=== PATIENT | male | born 1990 | race African-American/Black ===

== ENCOUNTER 2022-01-15 07:12 | Outpatient (CLI) | payer MEDICAID, SELFPAY ==
--- NOTE | ~2022-01-15 | XR_ITS ---
EXAMINATION: XR chest 2V 01/15/2022 08:10 INDICATION: Upper respiratory symptoms. PROCEDURE: 2 view chest COMPARISON: No prior studies for comparison. FINDINGS: The lungs are clear. The cardiomediastinal silhouette is within normal limits. There are no pleural effusions. There is no pneumothorax suspected. IMPRESSION: 1: NO ACUTE CARDIOPULMONARY DISEASE. Reviewed, dictated and finalized at location A.
[2022-01-15 07:58] LABS: Add Urine Microscopic? YES; Appearance Urine Clear (Clear); Bilirubin Urine Negative (Negative); Blood Urine Negative (Negative); Color Urine Yellow (Yellow); Glucose Urine UA Negative (Negative); Ketones Urine Negative (Negative); Leukocyte Esterase Ur Negative LEU/UL (NEGATIVE); Nitrate Urine Negative (Negative); Protein Urine Negative (Negative); Specific Grav Ur >= 1.030 (1.001-1.035)
[2022-01-15 08:00] LABS: Hemoglobin 13.6 g/dL (14.0-18.0); Mean Corpuscular HGB Conc 33.2 g/dl (32-36); Mean Corpuscular Hemoglobin 29.8 pg (26-34); Mean Corpuscular Volume 89.9 fl (80-100); Mean Platelet Volume 10.9 fl (7.4-10.4); Platelet Count Result 205 k/mm3 (150-375); Red Blood Count 4.56 M/mm3 (4.6-6.20); Red Cell Distribution Width 11.5 % (11.5-14.5); White Blood Count 5.4 K/mm3 (4.5-10.0)
[2022-01-15 08:04] LABS: Bacteria Urine Trace /hpf; Squamous Epithelial Cell Urine Rare /hpf (Few); WBC Urine 0-3 /hpf (0-3)
[2022-01-15 08:14] LABS: Creatinine Urine 170.6 mg/dL
[2022-01-15 08:22] LABS: Microalbumin Urine Random < 6.0 mg/L (0-16.7)
[2022-01-15 08:23] LABS: MALB Creatinine Ratio < 3.5 mg/g (0-30)
[2022-01-15 08:24] LABS: Alanine Aminotransferase 23 U/L (6-50); Albumin Level 4.6 g/dL (3.5-5.1); Alkaline Phosphatase 53 U/L (38-126); Anion Gap 9 mmol/L (8-16); Aspartate Amino Transferase 29 U/L (17-59); Bilirubin,Total 0.6 mg/dL (0.2-1.3); Blood Urea Nitrogen 12 mg/dL (9-20); Calcium 9.2 mg/dL (8.4-10.2); Carbon Dioxide 24 mmol/L (22-30); Chloride 105 mmol/L (98-107); Cholesterol 172 mg/dL (0-200); Estimated Glomerular Filt Rate > 60; Glucose 112 mg/dL (65-110); HDL Direct 64 mg/dL; Potassium 4.1 mmol/L (3.4-5.0); Sodium 138 mmol/L (137-145); Triglycerides 67 mg/dL (<150)
[2022-01-15 08:39] LABS: LDL Cholesterol Direct 68 mg/dL
[2022-01-15 08:47] LABS: Free T4 Free Thyroxine 1.21 ng/mL (0.78-2.19)
[2022-01-15 08:54] LABS: Thyroid Stimulating Hormone 0.902 uIU/mL (0.465-4.680)
[2022-01-15 09:56] LABS: Hemoglobin A1C 4.4 % (<5.7)
== END 2022-01-15 07:13 | disposition home or self-care (01) ==
PROVIDERS: PCP Emergency Medicine; Visit Provider Emergency Medicine
DX: R12 Heartburn (principal); I10 Essential (primary) hypertension; F31.9 Bipolar disorder, unspecified; J06.9 Acute upper respiratory infection, unspecified
CPT/HCPCS: 36415; 71046; 80053; 80061; 81001; 82043; 83036; 84439; 84443; 85027

== ENCOUNTER 2022-02-07 06:52 | Outpatient (CLI) | payer OTHER, SELFPAY ==
[2022-02-07 08:00] LABS: Appearance Urine Clear (Clear); Bilirubin Urine Negative (Negative); Blood Urine Negative (Negative); Color Urine Yellow (Yellow); Glucose Urine UA Negative (Negative); Ketones Urine Negative (Negative); Leukocyte Esterase Ur Negative LEU/UL (NEGATIVE); Nitrate Urine Negative (Negative); Protein Urine Negative (Negative); Urobilinogen Urine 0.2 mg/dL (<2.0)
[2022-02-07 08:06] LABS: WBC Urine 0-3 /hpf (0-3)
[2022-02-07 08:15] LABS: Add Urine Microscopic? NO
[2022-02-07 08:21] LABS: Iron 152 ug/dL (49-181)
[2022-02-07 08:51] LABS: HIV 1/2 Ab P24 Ag Result Negative (Negative)
[2022-02-08 08:35] LABS: Rapid Plasma Reagin Non-Reactive (NonReactive)
== END 2022-02-07 06:53 | disposition home or self-care (01) ==
LOC: ANHLAB 06:54
PROVIDERS: PCP Emergency Medicine; Visit Provider Emergency Medicine
DX: R12 Heartburn (principal); R31.9 Hematuria, unspecified
CPT/HCPCS: 36415; 81003; 83540; 86592; 86703; 87491; 87591; G0432

== ENCOUNTER 2022-03-21 11:45 | Emergency (ER) | payer OTHER, SELFPAY ==
--- NOTE | ~2022-03-21 | CT_ITS ---
EXAMINATION: CT abdomen pelvis w con INDICATION: Vomiting and diarrhea, abdominal pain TECHNIQUE: Computed tomographic images of the abdomen and pelvis were obtained after the administrati on of 100 cc of Omnipaque 350 intravenous contrast. The dose-length product (DLP) was 312.06 mGy-cm. Automated exposure control and iterative reconstruction technique were employed. COMPARISON: None available FINDINGS: The lung bases are clear. The heart size is normal. The liver, spleen, pancreas, gallbladde r, and adrenal glands are normal. The kidneys are unremarkable. The appendix is normal. No pathologic ally enlarged abdominal or pelvic lymph nodes are identified. There is no free intraperitoneal gas or evidence of bowel obstruction. There is a small volume of free fluid in the pelvis. IMPRESSION: 1. No CT correlate for the patient's symptoms. Small volume of free fluid in the pelvis of unclear et iology. Reviewed, dictated and finalized at location A. IMPRESSION: 1. No CT correlate for the patient's symptoms. Small volume of free fluid in th e pelvis of unclear etiology.
[2022-03-21 12:28] VITALS: BP 120/73; PULSE 60; RESP 18; TEMP 37; O2SAT 100
[2022-03-21 12:47] LABS: Basophils Absolute Auto 0.1 K/mm3 (0.0-0.1); Basophils Percent Auto 0.8 % (0.2-1.2); Eosinophils Absolute Auto 0.1 K/mm3 (0-0.3); Eosinophils Percent Auto 0.9 % (0-4.4); Hemoglobin 12.9 g/dL (14.0-18.0); Immature Granulocyte Absolute 0.01 K/mm3 (0.00-0.031); Immature Granulocyte Percent A 0.2 % (0-0.5); Lymphocytes Absolute Auto 1.74 K/mm3 (0.9-3.2); Lymphocytes Percent Auto 27.4 % (18.3-44.2); Mean Corpuscular HGB Conc 31.5 g/dl (32-36); Mean Corpuscular Hemoglobin 28.6 pg (26-34); Mean Corpuscular Volume 90.9 fl (80-100); Mean Platelet Volume 10.7 fl (7.4-10.4); Monocytes Absolute Auto 0.4 K/mm3 (0.1-0.6); Monocytes Percent Auto 6.9 % (2.6-8.5); Neutrophils Percent Auto 63.8 % (45.5-73.1); Platelet Count Result 212 k/mm3 (150-375); Red Blood Count 4.51 M/mm3 (4.6-6.20); Red Cell Distribution Width 11.7 % (11.5-14.5); White Blood Count 6.3 K/mm3 (4.5-10.0)
[2022-03-21 12:54] LABS: Alanine Aminotransferase 16 U/L (6-50); Albumin Level 4.5 g/dL (3.5-5.1); Alkaline Phosphatase 57 U/L (38-126); Anion Gap 11 mmol/L (8-16); Aspartate Amino Transferase 24 U/L (17-59); Blood Urea Nitrogen 9 mg/dL (9-20); Calcium 9.3 mg/dL (8.4-10.2); Carbon Dioxide 25 mmol/L (22-30); Chloride 101 mmol/L (98-107); Estimated CRCL calculation 96 ml/min; Estimated Glomerular Filt Rate > 60; Glucose 87 mg/dL (65-110); Lipase 106 U/L (23-300); Potassium 3.7 mmol/L (3.4-5.0); Sodium 137 mmol/L (137-145)
[2022-03-21 13:05] LABS: Appearance Urine Clear (Clear); Bilirubin Urine 1+ (Negative); Blood Urine Negative (Negative); Color Urine Yellow (Yellow); Glucose Urine UA Negative (Negative); Ketones Urine Negative (Negative); Leukocyte Esterase Ur Negative LEU/UL (Negative); Nitrate Urine Negative (Negative); Protein Urine Negative (Negative); Specific Grav Ur 1.025 (1.001-1.035); pH Urine 5.5 (5.0-9.0)
[2022-03-21 13:19] LABS: Mucus Urine Rare /lpf; Squamous Epithelial Cell Urine Rare /hpf (Few); WBC Urine 0-3 /hpf
[2022-03-21 13:42] LABS: Add Urine Microscopic? YES
[2022-03-21 14:39] VITALS: BP 123/82; PULSE 63; RESP 16; TEMP 36.7; O2SAT 99
--- NOTE | 2022-03-21 14:47 | ED.GENADULT ---
HPI - General Adult General Chief complaint: Nausea/Vomiting/Diarrhea Stated complaint: n/v/d Time Seen by Provider: 03/21/22 14:30 History of Present Illness HPI narrative: 31-year-old male presented to the emergency department for evaluation of nausea vomiting diarrhea and associated upper abdominal pain. Patient states yesterday he began developing the nausea vomiting diarrhea and abdominal pain and that has persisted throughout the night. Patient describes upper abdominal pain. Patient denies any prior surgical history. Related Data Allergies Allergy/AdvReac Type Severity Reaction Status Date / Time No Known Allergies Allergy Verified 03/21/22 14:38 Review of Systems Review of Systems: CONSTITUTIONAL: Denies fever, chills, or sweats. EYES: Denies visual changes, redness, or discharge. ENT: Denies rhinorrhea, congestion, sore throat, or otalgia. CARDIOVASCULAR: Denies chest pain, palpitations, or edema. RESPIRATORY: Denies cough or dyspnea. GASTROINTESTINAL: See HPI GENITOURINARY: Denies dysuria or hematuria. SKIN: Denies rash or itching. MUSCULOSKELETAL: Denies back pain, joint pain, or myalgia. NEUROLOGIC: Denies headache, numbness, or weakness. Exam Narrative: APPEARANCE: Well appearing, no pain, no distress, well-nourished. HEAD: normocephalic, atraumatic. EYES: PERRLA/EOMI, conjunctivae clear. NOSE: Normal no drainage NECK: Supple. No adenopathy, no masses. RESPIRATORY: Airway patent, respirations nonlabored. Clear to auscultation bilaterally, no rales, rhonchi, wheezing. CARDIOVASCULAR: Regular rate and rhythm without murmurs rubs or gallops. ABDOMINAL: Soft, upper abdominal tenderness to palpation MUSCULOSKELETAL: Moves all extremities. Strength/ROM intact, No edema, No calf tenderness. NEURO: Alert. Cranial nerves II through XII intact. Grossly intact SKIN: Warm, dry. Normal Color Course Vital Signs Vital signs: Vital Signs Temperature 98.6 F 03/21/22 12:28 Pulse Rate 60 03/21/22 12:28 Respiratory Rate 18 03/21/22 12:28 Blood Pressure 120/73 03/21/22 12:28 Pulse Oximetry 100 03/21/22 12:28 Oxygen Delivery Room Air 03/21/22 12:28 Temperature 98.0 F 03/21/22 16:05 Pulse Rate 60 03/21/22 16:05 Respiratory Rate 18 03/21/22 16:05 Blood Pressure 124/82 03/21/22 16:05 Pulse Oximetry 100 03/21/22 16:05 Oxygen Delivery Room Air 03/21/22 14:39 Medical Decision Making Vital Signs Vital Signs: Vital Signs Temperature 98.6 F 03/21/22 12:28 Pulse Rate 60 03/21/22 12:28 Respiratory Rate 18 03/21/22 12:28 Blood Pressure 120/73 03/21/22 12:28 Pulse Oximetry 100 03/21/22 12:28 Oxygen Delivery Room Air 03/21/22 12:28 Temperature 98.0 F 03/21/22 16:05 Pulse Rate 60 03/21/22 16:05 Respiratory Rate 18 03/21/22 16:05 Blood Pressure 124/82 03/21/22 16:05 Pulse Oximetry 100 03/21/22 16:05 Oxygen Delivery Room Air 03/21/22 14:39 Lab Data Lab results reviewed: Yes I reviewed the patient's lab results. Result diagrams: 03/21/22 12:37 03/21/22 12:37 Labs: Lab Results 03/21/22 03/21/22 03/21/22 Range/Units 12:37 12:37 12:41 WBC 6.3 (4.5-10.0) K/mm3 RBC 4.51 L (4.6-6.20) M/mm3 Hgb 12.9 L (14.0-18.0) g/dL Hct 41.0 L (42.0-52.0) % MCV 90.9 (80-100) fl MCH 28.6 (26-34) pg MCHC 31.5 L (32-36) g/dl RDW 11.7 (11.5-14.5) % Plt Count 212 (150-375) k/mm3 MPV 10.7 H (7.4-10.4) fl Immature Gran % (Auto) 0.2 (0-0.5) % Neut % (Auto) 63.8 (45.5-73.1) % Lymph % (Auto) 27.4 (18.3-44.2) % [place] % (Auto) 6.9 (2.6-8.5) % Eos % (Auto) 0.9 (0-4.4) % Baso % (Auto) 0.8 (0.2-1.2) % Lymph # (Auto) 1.74 (0.9-3.2) K/mm3 [place] # (Auto) 0.4 (0.1-0.6) K/mm3 Eos # (Auto) 0.1 (0-0.3) K/mm3 Baso # (Auto) 0.1 (0.0-0.1) K/mm3 Abs Immat Gran (auto) 0.01 (0.00-0.031) K/mm3 Absolute Neuts (auto) 4.0 (1.3-6.7) K/mm3
[2022-03-21] MEDS: SODIUM CHLORIDE 0.9% IV 1,000 ML 999 ML IV CONT ×2 (15:04)
[2022-03-21] MEDS: BELLADONNA ALK/PHENOB ELIX 10 ML, MAG HYDROX/ALUMINUM HYD/SIMETH 30 ML, LIDOCAINE HCL 2... PO (15:05)
[2022-03-21] MEDS: ONDANSETRON INJ 4 MG/2 ML VIAL IV PUSH (15:05)
[2022-03-21 16:05] VITALS: BP 124/82; PULSE 60; RESP 18; TEMP 36.7; O2SAT 100
== END 2022-03-21 16:43 | disposition home or self-care (01) ==
PROVIDERS: Emergency Provider Emergency Medicine; PCP Emergency Medicine
DX: R11.2 Nausea with vomiting, unspecified (principal)
CPT/HCPCS: 36415; 74177; 80053; 81001; 83690; 85025; 96361; 96374; 99284; A9270; J2405; J7030; Q9967

== ENCOUNTER 2022-04-20 17:14 | Emergency (ER) | payer OTHER, SELFPAY ==
--- NOTE | 2022-04-20 17:15 | ED.URI ---
HPI - URI/Sore Throat General Chief Complaint: Upper Respiratory Infection Stated Complaint: Pt states he wants a Rapid Covid Test Time Seen by Provider: 04/20/22 17:14 Source: patient Mode of arrival: ambulatory Limitations: no limitations History of Present Illness HPI Narrative: Mr. Pimentel is a 31-year-old male patient presenting to the clinic today with complaints of body aches that started this morning and he is wanting a rapid COVID test. He reports his work come back to work until he gets tested. He denies any known exposure to anybody with COVID, influenza, or strep Related Data Home Medications Medication Instructions Recorded Confirmed amlodipine 5 mg tablet 5 mg PO DAILY 04/20/22 04/20/22 divalproex 500 mg tablet,delayed 500 mg PO DIRECTED 04/20/22 04/20/22 release Allergies Allergy/AdvReac Type Severity Reaction Status Date / Time No Known Allergies Allergy Verified 04/20/22 17:17 Review of Systems Review of Systems: Pertinent positives per HPI. Patient denies any fever, chills, rash, headache, visual changes, dizziness, cough, runny nose, sore throat, shortness of breath, chest pain, palpitations, nausea, vomiting, diarrhea, constipation, abdominal pain, or any urinary issues. PMFSH Comments At the time of my signature, I reviewed and agree with the nursing past medical, surgical, social, and family history. There is no relevant family history pertinent to the patient complaint. Exam Narrative: General: Well-developed, well nourished, in no apparent distress Head: Normocephalic, atraumatic Eyes: Pupils equally round and reactive to light bilaterally, EOM intact, sclera and conjunctive clear, no discharge, lids normal Ears: TMs intact and clear, ear canals clear, no drainage, grossly hearing normal. Nose: Nares patent, no discharge, no inflammation, no sinus tenderness. Mouth: Oropharynx without lesions or masses, good dentition, MMM. Neck: Supple, trachea midline, no enlargement of anterior or posterior cervical nodes, no thyroid masses or goiter palpable. Cardio: Regular rate and rhythm, s1 and s2 normal, no murmur appreciated. Resp: Clear to auscultation bilaterally anteriorly and posteriorly, no rhonchi, rales, wheezing or rubs Course Course Emergency Course: Portions of this record may have been created with voice recognition software. Level of Care: Express Care Visit Vital Signs Vital signs: Vital Signs Temperature 36.8 C 04/20/22 17:23 Pulse Rate 91 04/20/22 17:23 Respiratory Rate 18 04/20/22 17:23 Blood Pressure 129/74 04/20/22 17:23 Pulse Oximetry 99 04/20/22 17:23 Oxygen Delivery Room Air 04/20/22 17:23 Temperature 36.8 C 04/20/22 17:23 Pulse Rate 91 04/20/22 17:23 Respiratory Rate 18 04/20/22 17:23 Blood Pressure 129/74 04/20/22 17:23 Pulse Oximetry 99 04/20/22 17:23 Oxygen Delivery Room Air 04/20/22 17:23 Vital signs reviewed MDM - URI/Sore Throat MDM Narrative Medical decision making narrative: At the time of visit patient is resting comfortably in the exam table. Patient's only had symptoms since this morning so I will go ahead and do a PCR test on him and send it out. Supportive measures were discussed with the patient he voiced understanding of discharge instructions and agrees to treatment plan. Differential Diagnosis Differential diagnosis: Likely upper respiratory infection, otitis media, sinusitis, viral infection, bronchitis, influenza, pharyngitis and other (COVID) Discharge Plan Discharge Clinical Impression: Acute viral syndrome Patient Disposition: Home, Self-Care Condition: Stable Instructions: Antibiotic Form, Viral Syndrome (ED) Additional Instructions: PCR COVID testing obtained and sent to lab Increase fluids and stay well hydrated Tylenol/motrin for pain/fever Flonase and OTC antihistamines as directed Vicks vapor rub to open sinuses Sinus rinses for congestion Cep
[2022-04-20 17:23] VITALS: BP 129/74; PULSE 91; RESP 18; TEMP 36.8; O2SAT 99
[2022-04-20 19:14] LABS: SARS-CoV-2 RNA PCR Negative
== END 2022-04-20 17:30 | disposition home or self-care (01) ==
PROVIDERS: Emergency Provider Nurse Practitioner Family; PCP Emergency Medicine
DX: B34.9 Viral infection, unspecified (principal); Z20.822 Contact with and (suspected) exposure to COVID-19
CPT/HCPCS: 99213; C9803; G0463; U0003; U0005

== ENCOUNTER 2023-04-15 08:59 | Emergency (ER) | payer OTHER, SELFPAY ==
[2023-04-15 09:07] VITALS: BP 114/75; PULSE 75; RESP 16; TEMP 36.2; O2SAT 99
[2023-04-15 09:08] VITALS: BP 114/75; PULSE 75; RESP 16; TEMP 36.2; O2SAT 99
--- NOTE | 2023-04-15 09:19 | ED.GENADULT ---
HPI - General Adult General Chief complaint: Upper Respiratory Infection Stated complaint: Vomiting/Sinus Source: patient Mode of arrival: ambulatory Limitations: no limitations History of Present Illness HPI narrative: Patient presents for evaluation of sick symptoms for the last 2 days. Reports of productive cough of green sputum, nausea and vomiting. He denies any fever, chills, sore throat, shortness of breath. No recent sick contacts to his knowledge. He did call off of work and is requesting a note to excuse him. He smokes about 1/4 ppd. He is not taking any medication to assist with his symptoms. No additional complaints or concerns. Related Data Home Medications Medication Instructions Recorded Confirmed Adderall 04/15/23 Allergies Allergy/AdvReac Type Severity Reaction Status Date / Time No Known Allergies Allergy Verified 04/15/23 09:07 Review of Systems Review of Systems: CONSTITUTIONAL: Denies fever, chills, or sweats. EYES: Denies visual changes, redness, or discharge. ENT: Denies rhinorrhea, congestion, sore throat, or otalgia. CARDIOVASCULAR: Denies chest pain, palpitations, or edema. RESPIRATORY: Reports productive cough of green sputum. Denies dyspnea. GASTROINTESTINAL: Reports nausea and vomiting. Denies abdominal pain GENITOURINARY: Denies dysuria or hematuria. SKIN: Denies rash or itching. MUSCULOSKELETAL: Denies back pain, joint pain, or myalgia. NEUROLOGIC: Denies headache, numbness, dizziness, or weakness. PSYCHIATRIC: Denies anxiety or depression. [facility] Past Medical History Medical History (Updated 04/15/23 @ 09:40 by Aurelio Mckoy, [place], ) No pertinent past medical history Surgical History Surgical History No pertinent past surgical history Family History Family History Mother Family history non-contributory Social History Social History Smoking packs per day: 0.25 Smoking cigarettes per day: 5.0 Smoking status: Current every day smoker Substance use: current Substance use type: marijuana Living arrangements: with family Gender identity (if verbalized by the patient): Male Spiritual care concerns: No Exam Narrative: GENERAL: Well-appearing, well-nourished, and in no acute distress. HEAD: Normocephalic, atraumatic. EYES: PERRLA and EOMI. ENT: Nares clear, no rhinorrhea or epistaxis. Mucous membranes moist. Oropharynx without tonsillar hypertrophy exudate or other lesions. Bilateral TMs [place] nonbulging NECK: Supple. No adenopathy or masses. No carotid bruits or JVD CHEST: Clear to auscultation. No respiratory distress. No wheezes rales or rhonchi HEART: Regular rate and rhythm. No murmur heard. Normal peripheral pulses. ABDOMEN: Soft, nontender, nondistended, normal active bowel sounds. EXTREMITIES: Normal range of motion. No edema. SKIN: Warm, dry, no rash. NEURO: No focal deficits. Alert and oriented x3. PSYCH: Normal mood and affect. Course Course Emergency Course: this is a 32-year-old male who presented for evaluation of sick symptoms. Influenza and COVID were negative. Exam is consistent with acute viral syndrome. Will discharge with Mucinex DM and Zofran. Follow up with primary provider. Go to the emergency department for worsening symptoms. Patient in agreement with plan of care. Level of Care: Express Care Visit Vital Signs Vital signs: Vital Signs Temperature 36.2 C L 04/15/23 09:07 Pulse Rate 75 04/15/23 09:07 Respiratory Rate 16 04/15/23 09:07 Blood Pressure 114/75 04/15/23 09:07 Pulse Oximetry 99 04/15/23 09:07 Oxygen Delivery Room Air 04/15/23 09:07 Temperature 36.2 C L 04/15/23 09:08 Pulse Rate 75 04/15/23 09:08 Respiratory Rate 16 04/15/23 09:08 Blood Pressure 114/75 04/15/23
== END 2023-04-15 09:44 | disposition home or self-care (01) ==
PROVIDERS: Emergency Provider Nurse Practitioner; PCP Emergency Medicine
DX: B34.9 Viral infection, unspecified (principal); F17.210 Nicotine dependence, cigarettes, uncomplicated; Z20.822 Contact with and (suspected) exposure to COVID-19
CPT/HCPCS: 87426; 87804; 99213; C9803; G0463

== ENCOUNTER 2024-02-22 12:24 | Emergency (ER) | payer OTHER, SELFPAY ==
--- NOTE | ~2024-02-22 | XR_ITS ---
XR foot RT min 3V DATE: 02/22/2024 12:53 INDICATION: Stepped on nail. Puncture wound at medial arch/ TECHNIQUE: 4 views COMPARISON: None FINDINGS: No subcutaneous emphysema or radiopaque foreign body is evident at the area of concern. There is mild osteophytosis at the first metatarsophalangeal joint. No fracture, dislocation, periosteal reaction or bone destruction is noted. IMPRESSION: No radiopaque foreign body Reviewed, dictated and finalized at location A. IMPRESSION: No radiopaque foreign body
--- NOTE | 2024-02-22 12:32 | ED.WOUNDLAC ---
HPI - Wound/Laceration General Chief Complaint: Wound/Laceration Stated Complaint: Right Foot Foreign Object Time Seen by Provider: 02/22/24 12:32 Source: patient Mode of arrival: ambulatory Limitations: no limitations History of Present Illness HPI narrative: Rodo is a 33-year-old male patient presenting to the clinic today with complaints of stepping on a nail with his right foot yesterday. Reports the nail was long and he pulled it out intact. States it felt like when he was pulling it out the pain was worse and fell as though it hit the bone. Mild redness and induration around puncture wound site without drainage. Tetanus is unknown. Related Data Home Medications Medication Instructions Recorded Confirmed Adderall 1 tab-cap PO DAILY 04/15/23 02/22/24 amlodipine 5 mg tablet 5 mg PO DAILY 02/22/24 02/22/24 Allergies Allergy/AdvReac Type Severity Reaction Status Date / Time No Known Allergies Allergy Verified 02/22/24 12:25 Review of Systems Review of Systems: Pertinent positives per HPI. Patient denies any fever, chills, rash, headache, visual changes, dizziness, cough, runny nose, sore throat, shortness of breath, chest pain, palpitations, nausea, vomiting, diarrhea, constipation, abdominal pain, or any urinary issues. PMFSH Past Medical History Medical History No pertinent past medical history Surgical History Surgical History No pertinent past surgical history Family History Family History Mother Family history non-contributory Social History Social History Smoking packs per day: 0.25 Smoking cigarettes per day: 5.0 Smoking status: Current every day smoker Substance use: current Substance use type: marijuana Living arrangements: with family Gender identity (if verbalized by the patient): Male Spiritual care concerns: No Comments At the time of my signature, I reviewed and agree with the nursing past medical, surgical, social, and family history. There is no relevant family history pertinent to the patient complaint. Exam Narrative: General: Well-developed, well nourished, in no apparent distress Head: Normocephalic, atraumatic. Cardio: Regular rate and rhythm, s1 and s2 normal, no murmur appreciated. Resp: Clear to auscultation bilaterally, no rhonchi, rales, wheezing or rubs. Integumentary: [place], warm, and dry, puncture wound to the right medial foot between the arch and the heel, tenderness to palpation with mild induration, no discharge Course Course Emergency Course: Portions of this record may have been created with voice recognition software. Level of Care: Express Care Visit Vital Signs Vital signs: Vital Signs Temperature 37.1 C 02/22/24 12:33 Pulse Rate 81 02/22/24 12:33 Respiratory Rate 14 02/22/24 12:33 Blood Pressure 129/72 02/22/24 12:33 Pulse Oximetry 98 02/22/24 12:33 Oxygen Delivery Room Air 02/22/24 12:33 Temperature 37.1 C 02/22/24 12:33 Pulse Rate 81 02/22/24 12:33 Respiratory Rate 14 02/22/24 12:33 Blood Pressure 129/72 02/22/24 12:33 Pulse Oximetry 98 02/22/24 12:33 Oxygen Delivery Room Air 02/22/24 12:33 Vital signs reviewed MDM - Wound/Laceration MDM Narrative Medical decision making narrative: At the time of visit patient is resting comfortably on the exam table. Patient appears to be nontoxic. Medications given: Tdap injection Diagnostics: X-ray of the right foot is negative for any sign of fracture or radiopaque foreign body. Plan: Supportive measures were discussed with the patient and they voiced understanding discharge instructions and agrees to treatment plan. Return precautions reviewed Differential Diagnosis Differential diagnosis:
[2024-02-22 12:33] VITALS: BP 129/72; PULSE 81; RESP 14; TEMP 37.1; O2SAT 98
[2024-02-22] MEDS: TETANUS,DIPHTHERIA,AC PERTUSSIS ADULT (0.5 ML) BOOSTRIX IM (12:38)
== END 2024-02-22 13:05 | disposition home or self-care (01) ==
PROVIDERS: Emergency Provider Nurse Practitioner Family; PCP Emergency Medicine
DX: S91.331A Puncture wound without foreign body, right foot, initial encounter (principal); W45.0XXA Nail entering through skin, initial encounter; F17.210 Nicotine dependence, cigarettes, uncomplicated; F12.90 Cannabis use, unspecified, uncomplicated; Z23 Encounter for immunization
CPT/HCPCS: 73630; 90471; 90715; 99213; G0463